=== PATIENT | female | born 1960 | race Caucasian/White ===

== ENCOUNTER 2017-01-02 13:01 | Day surgery (SDC) | payer OTHER, BC ==
[~2017-01-02] VITALS: Ht 160 cm; Wt 113.6 kg
[2017-01-02] MEDS ORDERED: GLUCOPHAGE500 MG/TAB PO (13:26)
[2017-01-02] MEDS ORDERED: MAGNESIUM200 MG PO (13:26)
[2017-01-02] MEDS ORDERED: MOBIC15 MG PO (13:27)
[2017-01-02] MEDS ORDERED: MULTI VITAMINS1 TAB PO (13:27)
[2017-01-02] MEDS ORDERED: LYRICA 75MG CAP75 MG PO (13:27)
[2017-01-02] MEDS ORDERED: CALCIUM 600MG+D1 TAB PO (13:28)
[2017-01-02] MEDS ORDERED: KLONOPIN 1MG1 MG PO (13:29)
[2017-01-02] MEDS ORDERED: VICTOZA6 MG/ML SQ (13:29)
[2017-01-02] MEDS ORDERED: DESYREL 50MG50 MG PO (13:30)
[2017-01-02] MEDS ORDERED: PROZAC 20MG20 MG PO (13:30)
[2017-01-02 13:59] VITALS: BP 141/88; PULSE 73; TEMP 97.8
[2017-01-02 15:40] VITALS: BP 146/85; PULSE 80; TEMP 98
[2017-01-02 15:45] VITALS: BP 130/87; PULSE 89
[2017-01-02] MEDS ORDERED: IMODIUM 2MG CAPS2 MG PO (15:52)
[2017-01-02] MEDS ORDERED: LEVBID0.375 MG (15:52)
== END 2017-01-02 16:15 | disposition home or self-care (01) ==
LOC: SDCO 13:01
DX: K21.9 Gastro-esophageal reflux disease without esophagitis (principal); K30 Functional dyspepsia; R19.7 Diarrhea, unspecified; R11.0 Nausea; R19.4 Change in bowel habit; K57.30 Diverticulosis of large intestine without perforation or abscess without bleeding; R10.9 Unspecified abdominal pain
CPT/HCPCS: J2250; J3010

== ENCOUNTER → 2017-03-17 | Outpatient (CLI) | payer OTHER, BC ==
[~2017-03-17] MED LIST: CALCIUM 600MG+D1 TAB PO; DESYREL 50MG50 MG PO; GLUCOPHAGE500 MG/TAB PO; IMODIUM 2MG CAPS2 MG PO; KLONOPIN 1MG1 MG PO; LEVBID0.375 MG; LYRICA 75MG CAP75 MG PO; MAGNESIUM200 MG PO; MOBIC15 MG PO; MULTI VITAMINS1 TAB PO; PROZAC 20MG20 MG PO; VICTOZA6 MG/ML SQ
== END ==
LOC: COL.RAD 08:07
DX: K30 Functional dyspepsia (principal)
CPT/HCPCS: A9541